=== PATIENT | female | born 2005 | race Caucasian/White ===

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

== ENCOUNTER 2024-12-25 12:36 | Emergency (ER) | payer OTHER, SELFPAY ==
--- OUTSIDE RECORDS SUMMARY | 2024-12-25 12:40 | XMS_ITS | Encounter Summary ---
Author Organization [facility] Address [address] [place] [address] Care Team Providers Care Slab Tripper Name Role Phone Hilary Wheatley MD Primary Care Provider [phone] Reason for Visit * Reason Onset Date Comments Cancelled Appointment 04/12/2021 Encounter Details Date Type Department Care Team (Late st Contact Info) Description 04/12/2021 Telephone [place] [id number] [place] [address] Sharda Mullins MD [address] [place] [phone] Cancelled Appointment Social History Tobacco Use Types Packs/Day Years Used Date Smoking Tobacco: Passive Smo ke Exposure - Never Smoker Smokeless Tobacco: Never Alcohol Use Standard Drinks/Week Comments No 0 (1 standard drink = 0.6 oz pur e alcohol) Comments No Sex and Gender Information Value Date Recorded Sex Assigned at Not on file 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 No / Unsure 03/15/2021 2:17 PM IRON POURER documented as of this encounter Functional Status * Is person deaf or have serious hearing difficulty? Answer Date of Assessment Author No 02/23/2017 12:51 PM IRON POURER Juhi Valenzuela RN * Is person blind or have serious difficulty seeing? Answer Date of Assessment Author No 02/23/2017 12:51 PM IRON POURER Juhi Valenzuela RN * Does person have serious difficulty walking/climbing stairs? Answer Date of Assessment Author No 02/23/2017 12:51 PM IRON POURER Juhi Valenzuela RN * Does person have difficulty dressing/bathing? Answer Date of Assessment Author No 02/23/2017 12:51 PM IRON POURER Juhi Valenzuela RN * Does person have difficulty doing errands alone? Answer Date of Assessment Author Yes 02/23/2017 12:51 PM Juhi Waller RN documented as of this encounter Mental Status * Does person have difficulty concentrating/remembering/making decisions? Answer Entry Date Author Yes 02/23/2017 12:51 PM Juhi Waller RN documented in this encounter Miscellaneous Notes * Telephone Encounter - Jaron Roblero - 04/12/2021 11:39 AM CST Called and left VM Message that 04/15/21 New Patient appt has been canceled. Parent will need to call back to reschedule. POURER documented in this encounter Plan of Treatment Not on file documented as of this encounter Visit Diagnoses Not on filedocumented in this encounter Care Teams Slab Tripper Relationship Specialty Start Date End Date Hilary Wheatley MD [address] [place], [place] [id number] PCP - General Pediatrics 01/27/17 documented as of this encounter
--- OUTSIDE RECORDS SUMMARY | 2024-12-25 12:40 | XMS_ITS | Clinical Summary ---
Author Organization [facility] Address [address] [place] [address] Care Team Providers Care Flumer Name Role Phone Hilary Wheatley MD Primary Care Provider [phone] Source Comments [facility],non-owned Affiliates and Associated Physician Practices is amultiple site organization consisting of ambulatory clinics and hospital sitesin [place], [place], [place] and [place]. This disclosure is being madepursuant to the Care Everywhere program and may not contain all information available regarding this patient. Last updated 17.[facility] Allergies No known active allergies Medications * Be aware that medications may not be up to date on this document. Alwaysverify current medications with the patient. 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 Adenotonsillar hypertrophy 01/27/2017 Resolved Problems Problem Noted Date Diagnosed Date Resolved Date Bilateral impacted cerumen 01/27/2017 1 04/12/2016 Social History Tobacco Use Types Packs/Day Years Used Date Smoking Tobacco: Passive Smo ke Exposure - Never Smoker Smokeless Tobacco: Never Alcohol Use Standard Drinks/Week Comments No 0 (1 standard drink = 0.6 oz pur e alcohol) Comments No Sex and Gender Information Value Date Recorded Sex Assigned at Not on file 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 Gender Identity Not on file Sexual Orientation Not on file Last Filed Vital Signs Vital Sign Reading Time Taken Comments Blood Pressure 106/72 01/23/2020 3:53 PM CDT Pulse 86 01/23/2020 3:53 PM CDT Temperature 36.8 C (98.2 F) 01/23/2020 3:53 PM CDT Respiratory Rate 16 01/23/2020 3:53 PM CDT Oxygen Saturation 97% 01/23/2020 3:53 PM CDT Inhaled Oxygen Concentration 100% 02/23/2017 1 2:45 PM SUPERVISOR [employer]RA[employer]PAIR Weight 53.5 kg (118 lb) 01/23/2020 3:53 PM CDT Height 163.8 cm (5' 4.5) 01/23/2020 3:53 PM CDT Body Mass Index 19.94 01/23/2020 3:53 PM CDT Plan of Treatment Health Maintenance Due Date Last Done Comments HIV SCREENING 2019 HPV VACCINE (1 - 3-dose series) 2019 CHLAMYDIA/GONORRHEA SCREENING 2020 MENINGOCOCCAL (Group B) VACC INE SHARED DECISION-MAKING (1 of 2 - Standard) 2020 HEPATITIS C SCREENING 03/07/2022 DTAP/TDAP/TD VACCINES (1 - Tdap) 2023 HEPATITIS B VACCINE (1 of 3 - 19+ 3-dose series) 2023 DEPRESSION SCREENING 04/06/2024 COVID-19 VACCINE (1 - 2023-2 5 season) 2024 INFLUENZA VACCINE (#1) 2024 ZOSTER VACCINE (1 of 2) 2054 HIB VACCINE Aged Out No longer eligi ble based on patient's age to complete this topic MENINGOCOCCAL GROUPS A/C/Y/W VACCINE Aged Out No longer eligible b ased on patient's age to complete this topic PNEUMOCOCCAL VACCINE Aged Out No long er eligible based on patient's age to complete this topic Insurance [facility] [address] [place] [address] [facility] Care Teams Flumer Relationship Specialty Start Date End Date Hilary Wheatley MD [address] [place], [place] [phone] PCP - General Pediatrics 01/27/17
[2024-12-25 12:44] VITALS: BP 109/68; PULSE 86; RESP 16; TEMP 36.8; O2SAT 99
[2024-12-25 13:03] LABS: EDSTREPNEGPOS1 Negative (Negative)
--- NOTE | 2024-12-25 13:14 | ED_ITS ---
HPI - General Adult General Chief complaint: Upper Respiratory Infection Stated complaint: throat/sinus/eyes/head Source: patient Mode of arrival: ambulatory Limitations: no limitations History of Present Illness HPI narrative: Patient presents for evaluation of sick symptoms for the past three days. Symptoms include sinus congestion, rhinorrhea, sore throat, bilateral otalgia, mild cough. No recent sick contacts. She has been taking daytime and nighttime sinus and cold medication with some improvement in her symptoms. No nausea, vomiting or diarrhea. Related Data Allergies Allergy/AdvReac Type Severity Reaction Status Date / Time No Known Allergies Allergy Verified 12/25/24 12:43 Review of Systems Review of Systems: CONSTITUTIONAL: Denies fever, chills, or sweats. EYES: Denies visual changes, redness, or discharge. ENT: reports sinus congestion, rhinorrhea, sore throat CARDIOVASCULAR: Denies chest pain, palpitations, or edema. RESPIRATORY: Reports mild cough. Denies dyspnea. GASTROINTESTINAL: Denies abdominal pain, nausea, vomiting, or diarrhea. GENITOURINARY: Denies dysuria or hematuria. SKIN: Denies rash or itching. MUSCULOSKELETAL: Denies back pain, joint pain, or myalgia. NEUROLOGIC: Denies headache, numbness, dizziness, or weakness. PSYCHIATRIC: Denies anxiety or depression. PMFSH Past Medical History Medical History No pertinent past medical history Surgical History Surgical History History of tonsillectomy Family History Family History Mother Family history non-contributory Social History Social History Substance use: never Gender identity (if verbalized by the patient): Female Exam Narrative: GENERAL: Well-appearing, well-nourished, and in no acute distress. HEAD: Normocephalic, atraumatic. EYES: PERRLA and EOMI. ENT: Nares clear, no rhinorrhea or epistaxis. Mucous membranes moist. Oropharynx without tonsillar hypertrophy exudate or other lesions. Bilateral TMs pearly rothman nonbulging NECK: Supple. No adenopathy or masses. No carotid bruits or JVD CHEST: Clear to auscultation. No respiratory distress. No wheezes rales or rhonchi HEART: Regular rate and rhythm. No murmur heard. Normal peripheral pulses. ABDOMEN: Soft, nontender, nondistended, normal active bowel sounds. EXTREMITIES: Normal range of motion. No edema. SKIN: Warm, dry, no rash. NEURO: No focal deficits. Alert and oriented x3. PSYCH: Normal mood and affect. Course Course Emergency Course: This is a 19-year-old female who presented for evaluation of sick symptoms. Rapid strep negative. Will send throat culture. Through shared decision making opted to proceed with Augmentin. Follow-up with primary provider. Go to the ER worsening symptoms. Patient in agreement with plan of care Level of Care: Express Care Visit Vital Signs Vital signs: Vital Signs Temperature 36.8 C 12/25/24 12:44 Pulse Rate 86 12/25/24 12:44 Respiratory Rate 16 12/25/24 12:44 Blood Pressure 109/68 12/25/24 12:44 Pulse Oximetry 99 12/25/24 12:44 Oxygen Delivery Room Air 12/25/24 12:44 Temperature 36.8 C 12/25/24 12:44 Pulse Rate 86 12/25/24 12:44 Respiratory Rate 16 12/25/24 12:44 Blood Pressure 109/68 12/25/24 12:44 Pulse Oximetry 99 12/25/24 12:44 Oxygen Delivery Room Air 12/25/24 12:44 Medical Decision Making Vital Signs Vital Signs: Vital Signs Temperature 36.8 C 12/25/24 12:44 Pulse Rate 86 12/25/24 12:44 Respiratory Rate 16 12/25/24 12:44 Blood Pressure 109/68 12/25/24 12:44 Pulse Oximetry 99 12/25/24 12:44 Oxygen Delivery Room Air 12/25/24 12:44 Temperature 36.8 C 12/25/24 12:44 Pulse Rate 86 12/25/24 12:44 Respiratory Rate 16 12/25/24 12:44 Blood Pressure 109/68 12/25/24 12:44 Pulse Oximetry 99 12/25/24 12:44 Oxygen Delivery Room Air 12/25/24 12:44 Lab Data Labs: Lab Results 12/25/24 Range/Units 13:00 POC Grp A Strep Screen Negative (Negative) Discharge Plan Discharge Clinical Impression: Pharyngitis Patient Disposition: Home Condition: Stable Instructions: Antibiotic Form, Pharyngitis (ED) Patient Language: Amharic Prescriptions: New amoxicillin-pot clavulanate 875-125 mg tablet 1 tablet PO Q12H Qty: 20 0RF Follow-up/Referrals: Josue Ledesma DO [Physician, Family Practice] Stand Alone Forms: Work/School Release IP Time of Disposition: 13:11
== END 2024-12-25 13:19 | disposition home or self-care (01) ==
PROVIDERS: Emergency Provider Nurse Practitioner
DX: J02.9 Acute pharyngitis, unspecified (principal)
CPT/HCPCS: 87081; 87880; 99213; G0463